=== PATIENT | female | born 1930 | race Caucasian/White ===

== ENCOUNTER 2017-05-05 14:01 | Inpatient (IN) | payer MEDICARE ==
[~2017-05-05] VITALS: Ht 162.6 cm; Wt 50.0 kg
[~2017-05-05 14:01] MED LIST: CALTRATE 600+D PO; CARTIA XT300 MG/24 PO; CRESTOR20 MG PO; DILTIAZEM PO; EPITOL200 MG PO; LIPITOR40 M1 PO; MAXZIDE-2537.5 MG/TA PO; PROTONIX40 M2 PO
[2017-05-05] MEDS ORDERED: ADLT ASA LOW81 MG PO (14:39)
[2017-05-05] MEDS ORDERED: LIPITOR20 MG PO (14:41)
[2017-05-05] MEDS ORDERED: CALTRATE 600+D1 CHW PO (14:43)
[2017-05-05] MEDS ORDERED: TRIAMT/HCTZ1 TA1 PO (14:45)
[2017-05-05] MEDS ORDERED: LEVOTHYROXIN50 MCG PO (14:47)
[2017-05-05] MEDS ORDERED: ANORO ELLIPTA 61 AER IN (14:48)
[2017-05-05] MEDS ORDERED: AMLODIPINE5 MG PO (14:49)
[2017-05-05 14:58] LABS: HEMATOCRIT 37.9 % (37.0-47.0); HEMOGLOBIN 13.1 g/dl (12.0-16.0); IMMATURE GRANULOCYTES 0.2 % (0.0-1.0); MEAN CELL VOLUME 93.6 fL CALC (80.0-100.0); MEAN CORPUSCULAR HGB 32.3 pG CALC (26.0-32.0); MEAN CORPUSCULAR HGB CONC 34.6 g/L CALC (32.0-36.0); NEUT# 2.85 thou/uL (2.00-7.15); RED BLOOD COUNT 4.05 mill/uL (4.20-5.60); RED CELL DISTRI WIDTH 13.1 % (11.5-15.5)
[2017-05-05 15:20] LABS: ALBUMIN 4.3 g/dL (3.2-5.0); ALKALINE PHOSPHATASE 85 u/l (38-126); ANION GAP 18 (6-22 (CALC)); BILIRUBIN, TOTAL 0.6 mg/dL (0.0-1.4); BUN 21 mg/dL (8-23); BUN/CREATININE RATIO 22 (12-20 (CALC)); CALCIUM 9.7 mg/dL (8.4-10.2); CARBON DIOXIDE 21 mmol/l (22-30); CHLORIDE 89 mmol/l (95-108); GFR 52 ML/MIN (>=60 (CALC)); GFR FOR AFR.AMER. > 60 ML/MIN (>=60 (CALC)); GLUCOSE 151 mg/dL (82-115); POTASSIUM 4.5 mmol/l (3.5-5.1); SGOT/AST 35 u/l (9-36); SGPT/ALT 23 u/l (11-66); SODIUM 123 mmol/l (137-146); TOTAL PROTEIN 7.9 g/dL (6.3-8.2)
[2017-05-05 15:29] LABS: MYOGLOBIN 50 ng/mL (0 - 62)
[2017-05-05 16:38] LABS: URINE BILIRUBIN - DIPSTICK NEGATIVE (NEGATIVE); URINE BLOOD DIPSTICK NEGATIVE (NEGATIVE); URINE COLOR YELLOW; URINE GLUCOSE - DIPSTICK NEGATIVE (NEGATIVE); URINE KETONE NEGATIVE (NEGATIVE); URINE LEUK ESTERASE NEGATIVE (NEGATIVE); URINE NITRITE - DIPSTICK NEGATIVE (Negative); URINE PROTEIN - DIPSTICK NEGATIVE (NEG-TRACE); URINE SPECIFIC GRAVITY <=1.005; URINE UROBILINOGEN - DIPSTICK 0.2 E.U./dL (0.2)
[2017-05-05 17:25] LABS: URINE CLARITY CLEAR
[2017-05-05 18:12] LABS: CHOLESTEROL HDL RATIO 2.7 (<4.4 (CALC))
[2017-05-05 18:43] LABS: TSH, 3RD GENERATION 2.12 uIU/mL (0.47 - 4.68)
[2017-05-05 19:25] VITALS: BP 170/63
[2017-05-05 19:30] VITALS: BP 178/85
[2017-05-05 23:27] VITALS: BP 131/63
[2017-05-06 05:59] LABS: HEMATOCRIT 34.3 % (37.0-47.0); HEMOGLOBIN 11.8 g/dl (12.0-16.0); IMMATURE GRANULOCYTES 0.4 % (0.0-1.0); MEAN CORPUSCULAR HGB CONC 34.4 g/L CALC (32.0-36.0); NEUT# 2.69 thou/uL (2.00-7.15); RED BLOOD COUNT 3.69 mill/uL (4.20-5.60); RED CELL DISTRI WIDTH 12.9 % (11.5-15.5)
[2017-05-06 06:04] LABS: ALBUMIN 3.4 g/dL (3.2-5.0); ALKALINE PHOSPHATASE 80 u/l (38-126); ANION GAP 12 (6-22 (CALC)); BILIRUBIN, TOTAL 0.5 mg/dL (0.0-1.4); BUN 15 mg/dL (8-23); BUN/CREATININE RATIO 20 (12-20 (CALC)); CALCIUM 9.3 mg/dL (8.4-10.2); CARBON DIOXIDE 23 mmol/l (22-30); CHLORIDE 98 mmol/l (95-108); CREATININE 0.8 mg/dL (0.5-1.0); GFR > 60 ML/MIN (>=60 (CALC)); GFR FOR AFR.AMER. > 60 ML/MIN (>=60 (CALC)); GLUCOSE 89 mg/dL (82-115); POTASSIUM 4.3 mmol/l (3.5-5.1); SGOT/AST 26 u/l (9-36); SGPT/ALT 24 u/l (11-66); SODIUM 129 mmol/l (137-146); TOTAL PROTEIN 6.4 g/dL (6.3-8.2)
[2017-05-06 08:00] VITALS: BP 119/55
[2017-05-06 11:15] VITALS: BP 150/62
[2017-05-06 15:58] VITALS: BP 165/65
[2017-05-06 19:35] VITALS: BP 168/73
[2017-05-07 00:07] VITALS: BP 166/60
[2017-05-07 04:45] VITALS: BP 154/61
[2017-05-07 06:20] LABS: HEMATOCRIT 33.9 % (37.0-47.0); HEMOGLOBIN 11.7 g/dl (12.0-16.0); IMMATURE GRANULOCYTES 0.2 % (0.0-1.0); MEAN CELL VOLUME 93.4 fL CALC (80.0-100.0); MEAN CORPUSCULAR HGB 32.2 pG CALC (26.0-32.0); MEAN CORPUSCULAR HGB CONC 34.5 g/L CALC (32.0-36.0); NEUT# 2.13 thou/uL (2.00-7.15); RED BLOOD COUNT 3.63 mill/uL (4.20-5.60); RED CELL DISTRI WIDTH 13.2 % (11.5-15.5)
[2017-05-07 06:36] LABS: ALBUMIN 3.3 g/dL (3.2-5.0); ALKALINE PHOSPHATASE 81 u/l (38-126); ANION GAP 11 (6-22 (CALC)); BILIRUBIN, TOTAL 0.5 mg/dL (0.0-1.4); BUN 14 mg/dL (8-23); BUN/CREATININE RATIO 19 (12-20 (CALC)); CALCIUM 9.6 mg/dL (8.4-10.2); CARBON DIOXIDE 26 mmol/l (22-30); CHLORIDE 98 mmol/l (95-108); CREATININE 0.7 mg/dL (0.5-1.0); GFR > 60 ML/MIN (>=60 (CALC)); GFR FOR AFR.AMER. > 60 ML/MIN (>=60 (CALC)); GLUCOSE 86 mg/dL (82-115); SGOT/AST 29 u/l (9-36); SGPT/ALT 24 u/l (11-66); SODIUM 131 mmol/l (137-146); TOTAL PROTEIN 6.5 g/dL (6.3-8.2)
[2017-05-07 09:04] VITALS: BP 118/58
[2017-05-07 09:33] VITALS: BP 118/58
== END 2017-05-07 11:00 | disposition home or self-care (01) | DRG 641 ==
LOC: ED 14:01 → ED-I 15:52 → ED 16:18 → MS2 16:19
PROVIDERS: Emergency Medicine; ADMIT Internal Medicine Geriatric Medicine; ATTEND Internal Medicine Geriatric Medicine
DX: E87.1 Hypo-osmolality and hyponatremia (principal); I10 Essential (primary) hypertension; E03.9 Hypothyroidism, unspecified; I25.10 Atherosclerotic heart disease of native coronary artery without angina pectoris; E78.5 Hyperlipidemia, unspecified; K21.9 Gastro-esophageal reflux disease without esophagitis; K27.9 Peptic ulcer, site unspecified, unspecified as acute or chronic, without hemorrhage or perforation; M19.90 Unspecified osteoarthritis, unspecified site; Z86.73 Personal history of transient ischemic attack (TIA), and cerebral infarction without residual deficits; Z92.3 Personal history of irradiation; Z85.118 Personal history of other malignant neoplasm of bronchus and lung

== ENCOUNTER 2017-05-17 11:35 | Emergency (ER) | payer MEDICARE ==
[~2017-05-17] VITALS: Ht 162.6 cm; Wt 55.0 kg
[~2017-05-17 11:35] MED LIST changes: +ADLT ASA LOW81 MG PO; +AMLODIPINE5 MG PO; +ANORO ELLIPTA 61 AER IN; +CALTRATE 600+D1 CHW PO; +LEVOTHYROXIN50 MCG PO; +LIPITOR20 MG PO; +TRIAMT/HCTZ1 TA1 PO
[2017-05-17] MEDS ORDERED: DICLOFEN POT50 MG PO (12:11)
[2017-05-17] MEDS ORDERED: TEGRETOL200 MG PO (12:12)
[2017-05-17] MEDS ORDERED: PANTOPRAZOLE SO40 M1 PO (12:13)
[2017-05-17] MEDS ORDERED: MAXZIDE-2537.5 MG/TA PO (12:13)
[2017-05-17] MEDS ORDERED: ULTRAM50 M1 PO (12:46)
[2017-05-17 12:55] VITALS: BP 149/66
== END 2017-05-17 12:55 | disposition home or self-care (01) ==
LOC: ED 11:35
DX: S20.211A Contusion of right front wall of thorax, initial encounter (principal); I10 Essential (primary) hypertension; E03.9 Hypothyroidism, unspecified; K21.9 Gastro-esophageal reflux disease without esophagitis; E78.5 Hyperlipidemia, unspecified; Z86.73 Personal history of transient ischemic attack (TIA), and cerebral infarction without residual deficits; W01.198A Fall on same level from slipping, tripping and stumbling with subsequent striking against other object, initial encounter; Y92.002 Bathroom of unspecified non-institutional (private) residence as the place of occurrence of the external cause